=== PATIENT | female | born 1970 | race Caucasian/White ===

== ENCOUNTER 2021-09-25 16:50 | Emergency (ER) | payer OTHER ==
[2021-09-25 21:44] LABS: HEMOGLOBIN 12.8 gm/dl (12.3-15.3); RED BLOOD COUNT 3.68 M/UL (4.00-5.10); WHITE BLOOD COUNT 9.5 K/UL (4.5-11.0)
[2021-09-25 22:16] LABS: BUN/CREATININE RATIO 20 (0-10)
== END 2021-09-25 23:42 | disposition home or self-care (01) ==
LOC: ER1 16:50
PROVIDERS: Student in an Organized Health Care Education/Training Program
DX: I10 Essential (primary) hypertension (principal); E11.9 Type 2 diabetes mellitus without complications
CPT/HCPCS: 71045; 80053; 82550; 82553; 84484; 85025; 93005; 99284; J1644